=== PATIENT | male | born 1990 | race Two or more races ===

== ENCOUNTER 2024-12-06 14:12 | Inpatient (IN) | payer MEDICAID, SELFPAY ==
[2024-12-06] VITALS (9 sets, daily range): BP systolic 135–165; BP diastolic 93–110; PULSE 81–107; RESP 18–97; TEMP 36.8–37; O2SAT 83–97; BMI 23.5; BMI 22.8
--- NOTE | 2024-12-06 14:38 | PC.NURSE ---
CALLED FROM [facility] FOR TRIAGE/RME AND NO ANSWER
--- NOTE | 2024-12-06 15:00 | XR_ITS ---
Examination: CT abdomen and pelvis without contrast. Coronal 3-D reconstructions. Sagittal 2-D reconstructions. Date and time of exam:December 06, 2024 1534 hours INDICATIONS: Upper abdominal pain diagnosis pancreatitis symptoms beginning 4 days ago CTDI: vol (mGy): 5.75 DLP: (mGycm): 341 Technique: Axial images of the abdomen have been obtained, 3 mm slice thickness Intravenous contrast material has not been administered. Low dose protocols were performed. One or more of the following dose reduction techniques were used; automated exposure control, adjustment of the mA and/or KV according to patient size, use of iterative reconstruction technique. Findings: Severe diffuse fatty infiltration throughout the liver, no focal liver or splenic lesions Mildly hyperdense gallbladder Edema surrounding the pancreas No renal or ureteral calculi, no hydronephrosis Aorta normal size No bowel obstruction Diffuse colonic diverticulosis Normal appendix Contracted urinary bladder No prostatomegaly IMPRESSION: Acute pancreatitis, no pseudocyst
--- NOTE | 2024-12-06 15:01 | PD.EDRME ---
Rapid Medical Screening Exam [facility] Arrival date/time: 12/06/24 14:12 34-year-old male with a history of pancreatitis presents to the emergency room with a chief complaint of abdominal pain, nausea, vomiting x 4 days. Patient states over the weekend he began drinking alcohol and since then as per symptoms have progressively gotten worse. I have greeted and performed a focused initial assessment of this patient. A comprehensive ED assessment and evaluation of the patient, analysis of all test results, and completion of the medical decision making process will be conducted by additional ED providers. Chief Complaint: Abdominal Pain Time Seen by Provider: 12/06/24 14:21 Vital signs: Vital Signs Temperature 98.5 F 12/06/24 14:49 Pulse Rate 107 H 12/06/24 14:49 Respiratory Rate 20 12/06/24 14:49 Blood Pressure 145/93 H 12/06/24 14:49 Pulse Oximetry (%) 96 12/06/24 14:49 Oxygen Delivery Method Room Air 12/06/24 14:49 Vital signs reviewed by provider: Yes
[2024-12-06] MEDS: HYDROcodone/APAP 5/325 TABLET 1 TAB PO (15:08)
[2024-12-06] MEDS: ONDANSETRON ODT 4 MG TABRAP PO (15:08)
[2024-12-06 15:38] LABS: Collection Type, Urine Clean Catch
[2024-12-06 15:40] LABS: Basophils # (Auto) 0.1 Thou/mm3 (0.0-0.2); Basophils % (Auto) 1 % (0-2.5); Eosinophils % (Auto) 0 % (0-10); Hematocrit 44.4 % (41.0-53.0); Hemoglobin 16.2 g/dL (13.5-16.0); Immature Granulocytes % (Auto) 0 % (0-0); Immature Granulocytes Auto 0.04 Thou/mm3 (0.00-0.00); Lymphocytes # (Auto) 1.4 Thou/mm3 (1.0-4.8); Lymphocytes % (Auto) 13 % (10-50); Mean Corpuscular HGB Conc 36.5 g/dl (31.0-37.0); Mean Corpuscular Volume 90 fL (80-100); Monocytes # (Auto) 0.5 Thou/mm3 (0.0-0.8); Monocytes % (Auto) 5 % (0-12); Neutrophils # (Auto) 8.6 Thou/mm3 (1.8-7.7); Neutrophils % (Auto) 81 % (37-80); Nucleated Red Blood Cell % 0 /100 WBC (0); Platelet Count 184 Thou/mm3 (140-440); RDW Standard Deviation 41.4 fL (35.1-43.9); Red Blood Count 4.91 Miln/mm3 (4.50-5.90); White Blood Count 10.5 Thou/mm3 (3.8-10.6)
[2024-12-06 15:45] LABS: Bilirubin,Urine Negative (Negative); Blood,Urine Trace (Negative); Clarity,Urine Clear (Clear/Hazy); Color,Urine Yellow (Lt Yel-Yel); Glucose, Urine Negative (Negative); Ketones,Urine 4+ (Negative); Leukocyte Esterase,Urine Negative (Negative); Nitrite,Urine Negative (Negative); PH,Urine 6.5 (5.0-7.0); Protein,Urine 3+ (Neg - Trace); RBC,Urine 2 /hpf (0-3); Specific Gravity,Urine 1.041 (1.001-1.035); Squamous Epithelial Cell,Urine 1 /hpf (0-5); Urobilinogen,Urine Negative mg/dL (0.0-1.0); WBC,Urine 2 /hpf (0-5)
[2024-12-06 16:00] LABS: Alanine Aminotransferase 75 U/L (10-49); Albumin, Serum 5.2 gm/dL (3.5-5.0); Albumin/Globulin Ratio 1.5 (1.2-2.2); Alkaline Phosphatase 101 U/L (46-116); Anion Gap 20 (7-16); BUN/Creatinine Ratio 10 Ratio (12-20); Bilirubin,Total 1.3 mg/dL (0.3-1.2); Blood Urea Nitrogen 9 mg/dL (9-23); Carbon Dioxide 22.5 mMol/L (20.0-31.0); Chloride 95 mMol/L (98-107); Creatinine (Component) 0.9 mg/dL (0.6-1.3); Estimated Creatinine Clearance 106.1 mL/min (>60); Globulin 3.5 gm/dL (2.3-3.5); Glucose 114 mg/dL (74-106); Lipase 439 U/L (12-53); Osmolality,Calculated 273 (275-295); Potassium 4.1 mMol/L (3.4-5.1); Sodium 137 mMol/L (136-145); Total Protein 8.7 gm/dL (5.7-8.2); eGFR > 60 See Note
--- NOTE | 2024-12-06 19:33 | PC.NURSE ---
pt just placed in rm . co severe abd pain.
[2024-12-06] MEDS: MORPHINE SULF INJ 10 MG/ML VIAL 5 MG IVP (19:44)
[2024-12-06] MEDS: SODIUM CHLORIDE 0.9% 1000 ML 1,000 ML 999 ML IV (19:45)
[2024-12-06] MEDS: ONDANSETRON INJ 2 MG/ML INJ 2 ML 4 MG IVP (19:48)
--- NOTE | 2024-12-06 20:20 | PD.EDABDPN ---
ED Abdominal Pain RME/HPI General Chief Complaint: Abdominal Pain Stated complaint: I HAVE PANCREATITIS x 4 DAYS Time seen by provider: 12/06/24 14:21 Arrival date/time: 12/06/24 14:12 RME / HPI RME / HPI narrative: 12/06/24 14:12 34-year-old male with a history of pancreatitis presents to the emergency room with a chief complaint of abdominal pain, nausea, vomiting x 4 days. Patient states over the weekend he began drinking alcohol and since then as per symptoms have progressively gotten worse. I have greeted and performed a focused initial assessment of this patient. A comprehensive ED assessment and evaluation of the patient, analysis of all test results, and completion of the medical decision making process will be conducted by additional ED providers. DR KAVITHA GRACE ED EVALUATION: 34 yo male patient with a h/o pancreatitis c/o vomiting, diarrhea, epigastric abdominal pain, sweats radiating to the back x 3 days. States he went to a wedding over the weekend and drank a lot of alcohol. Related Data Allergies Allergy/AdvReac Type Severity Reaction Status Date / Time No Known Allergies Allergy Verified 12/06/24 14:14 Review of Systems Review of Systems Systems Reviewed: All systems reviewed, normal except as documented ED Exam Narrative Physical exam: GENERAL APPEARANCE: alert and oriented x 4, well-developed, well-nourished, no acute distress HEENT: Normocephalic, atraumatic; pupils equal, round, reactive to light; EOMI; mucous membranes pink, moist; oropharynx clear NECK: Supple LUNGS: CTABL; no wheezes, no rales, no rhonchi HEART: Regular rate, regular rhythm; normal S1, S2; no murmurs ABDOMEN: Mildly distended; normal BS; soft, epigastric tenderness, no guarding, no rebound; no masses, no organomegaly, no hernia BACK: no CVA tenderness EXTREMITIES: atraumatic; no edema NEUROLOGIC: awake; alert and oriented x4; cranial nerves II-XII grossly intact; no focal sensory or motor deficits PSYCHIATRIC: appropriate mood and affect SKIN: warm, dry, normal color; no rashes Course Quality Measures none Orders Category Date Time Status CT abdomen pelvis wo con Stat Exams 12/06/24 15:00 Completed CBC Stat Lab 12/06/24 15:21 Completed CMP [Comprehensive Metabolic Panel] Stat Lab 12/06/24 15:21 Completed Lipase Stat Lab 12/06/24 15:21 Completed UA [Urinalysis] Stat Lab 12/06/24 15:31 Completed Urine Culture Stat Lab 12/06/24 15:31 Received HYDROcodone*/APAP 5/325 [Robeline 5/325] Med 12/06/24 15:00 Discontinued 1 tab PO X1 ONE Morphine Inj Med 12/06/24 19:30 Discontinued 5 mg IVP X1 ONE Ondansetron Inj [Zofran Inj] Med 12/06/24 19:30 Discontinued 4 mg IVP X1 ONE Ondansetron Odt [Zofran Odt] Med 12/06/24 15:00 Discontinued 4 mg PO X1 ONE Sodium Chloride 0.9% 1000 ml [Ns] 1,000 ml Med 12/06/24 19:30 Active IV 999 mls/hr Vital Signs Vital signs: Vital Signs Temperature 98.5 F 12/06/24 14:49 Pulse Rate 107 H 12/06/24 14:49 Respiratory Rate 20 12/06/24 14:49 Blood Pressure 145/93 H 12/06/24 14:49 Pulse Oximetry (%) 96 12/06/24 14:49 Oxygen Delivery Method Room Air 12/06/24 14:49 Abdominal Pain MDM Patient data External records reviewed:: [facility] previous records (No previous records) Clinical information provided by:: patient Social determinants that could affect healthcare access:: alcohol use Patient has the following chronic illnesses:: None How is presenting disease/condition affected by chronic disease/condition?: no chronic disease Evaluation data The following diagnostics were reviewed and interpreted by me:: lab results and radiology exam(s) Lab and/or radiology exams considered but not ordered:: None Interpretation Summary: Lipase 439 Medications / Prescriptions Medications or Prescriptions considered but not ordered:: None Medication administrations:: Medication Administration History Sodium Chloride (Ns) 1,000 mls @ 999 mls/hr IV .Q1H1M ONE Stop: 12/06/24 20:30 Discontinued Medications Hydrocodone Bitart/Acetaminophen (Hydrocodone/Apap 5/325 Tablet) 1 tab PO X1 ONE Stop: 12/06/24 15:01 Last Admin: 12/06/24 15:08 Dose: 1 tab Documented By: Morphine Sulfate (Morphine Sulf Inj 10 Mg/Ml Vial) 5 mg IVP X1 ONE Stop: 12/06/24 19:31 Last Admin: 12/06/24 19:44 Dose: 5 mg Documented By: JUDIE Ondansetron HCl (Ondansetron Odt 4 Mg Tabrap) 4 mg PO X1 ONE; Protocol Stop: 12/06/24 15:01 Last Admin: 12/06/24 15:08 Dose: 4 mg Documented By: ASHISH Ondansetron HCl (Ondansetron Inj 2 Mg/Ml Inj 2 Ml) 4 mg IVP X1 ONE Stop: 12/06/24 19:31 Last Admin: 12/06/24 19:48 Dose: 4 mg Documented By: JUDIE As above Consultations Consultation(s) initiated? (list below): No Diagnosis Differential diagnosis abdominal pain: abdominal pain, acute appendicitis, calculus of kidney, constipation, diverticulitis, gastroenteritis, pancreatitis and small bowel obstruction Most likely diagnosis given after review of the tests above:: Acute pancreatitis Admission Indicated Admission indicated?: indicated Admission Request Was there a request for admission?: Yes Admission Attestation Admission request attestation: Discussed case with [] from Hospitalist service regarding admission. Discussed patients ED course, exam findings, labs, and radiology results. The Hospitalist [agrees,declines] to accept the patient for admission. Disposition Plan Disposition Plan: Admit Discharge Plan Plan Patient Disposition: Admit Acute Care w/in Hospital Prescriptions/Referrals Referrals: No Primary/Family,Physician [Primary Care Provider] - In 1 week Problem List Clinical Impression: Acute pancreatitis, Alcohol abuse Patient/Caregiver Discharge Instructions Print Language: Afghan Stand Alone Forms: Courtney Award Info., Patient Portal Info Letter
--- NOTE | 2024-12-06 20:38 | ESHP_ITS ---
Documentation for date of: 12/06/24 HPI History of Present Illness Chief complaint: N/V/Diarrhea/ Abd pain History of present illness: 34-year-old male with past medical history of previous acute pancreatitis episode last year was admitted to the hospital 12/06/2024 with come to the ED with complaints of abdominal pain, nausea, vomiting, and diarrhea like 3 days ago. Patient stated that he drinks around 2 or 3 cocktails every other day and that this weekend he was at a wedding therefore he drank straight from Thursday till Thursday and drank beer as well as cocktails. He stated that his last drink was yesterday evening. He mentioned that since he had his episode of pancreatitis last year he has been trying to cut down on his alcohol drinking. His symptoms started on Thursday with some nausea and vomiting, but he stated that today they became more intense and his abdominal pain was excruciating therefore he came to the ED. He did not have any other complaints other than these mention. ED course: Initially came in hypertensive, tachycardic, and afebrile. Initial labs were relevant for hyperbilirubinemia, elevated ALT, elevated lipase, and UA was positive for ketones. Initial imaging included abdomen/pelvis CT which showed acute pancreatitis with no cirrhosis. PMH as above Surgical Hx: Neck surgery when he was a kid Social Hx: Denies any smoking, illicit drugs, admits alcohol use Medications: None per patient Review of Systems Review of Systems Narrative Review of Systems: Constitutional: Denies sweats, Denies weight loss/gain, Denies fever, Admits chills. HEENT: Denies hearing loss, Denies ear pain, Denies postnasal drip, Denies double vision, Denies blurry vision. Respiratory: Denies shortness of breath, Denies cough, Denies wheezing. Cardiovascular: Denies chest pain, Admits palpitations, Denies sudden loss of consciousness. GI: Denies blood in stool, Admits diarrhea, Denies constipation, admits abdominal pain, Denies difficulty swallowing, admits nausea and vomit. : Denies urinary incontinence, Denies pain while urinating, Denies increased urinary frequency. MSK: Denies joint pain, Denies joint swelling, Denies numbness. Skin: Denies rash, Denies itching, Denies easy bruising. Neuro: Denies headaches, Denies dizziness, Denies seizures. Past Medical History Past Medical History Comments PMH COMMENT: PMH prior episode of pancreatitis Surgical Hx: Neck surgery when he was a kid Social Hx: Denies any smoking, illicit drugs, admits alcohol use Medications: None per patient Exam Vital Signs Temp Pulse Resp BP Pulse Ox O2 Del Method 98.5 F 81 19 165/110 H 96 Room Air 12/06/24 19:32 12/06/24 19:32 12/06/24 19:32 12/06/24 19:32 12/06/24 19:32 12/06/24 19:32 Narrative Exam General: A/O x3, no acute distress Eyes: PERRL, EOMI. Anicteric, vision grossly intact. Ears: No ear pain, no ear discharge, Hearing grossly intact. Nose: No nasal discharge. Mouth/Throat: Moist mucous membranes, no redness, no lesions. Neck: Neck supple, non-tender, no cervical lymphadenopathy. Lungs: Clear ERICA to auscultation and percussion, No accessory muscle use. Cardio: Normal S1/S2,tachycardic, regular rhythm, no murmurs, no JVD Abdomen: Soft, non-tender, no palpable masses, peristalsis present, no guarding or rebound. Extremities: Symmetrical, no significant deformities, no peripheral edema , non-tender, peripheral pulses presents. tremor with hand extension Skin: No rashes, no lesions, warm to touch. Neuro: No focal neurological deficits. motor and sensory intact Psych: mildly anxious appearing Results: Labs 12/06/24 15:21 12/06/24 15:21 Labs: Short CBC 12/06/24 Range/Units 15:21 WBC 10.5 (3.8-10.6) Thou/mm3 Hgb 16.2 H (13.5-16.0) g/dL Hct 44.4 (41.0-53.0) % Plt Count 184 (140-440) Thou/mm3 BMP 12/06/24 15:21 Sodium 137 Potassium 4.1 Chloride 95 L Carbon Dioxide 22.5 BUN 9 Creatinine 0.9 Glucose 114 H Calcium 10.0 Liver Function 12/06/24 Range/Units 15:21 Total Bilirubin 1.3 H (0.3-1.2) mg/dL ALT 75 H (10-49) U/L Alkaline Phosphatase 101 (46-116) U/L Albumin 5.2 H (3.5-5.0) gm/dL Urine 12/06/24 Range/Units 15:31 Urine Color Yellow (Lt Yel-Yel) Urine Clarity Clear (Clear/Hazy) Urine pH 6.5 (5.0-7.0) Ur Specific [place] 1.041 H (1.001-1.035) Urine Protein 3+ A (Neg - Trace) Urine Glucose (UA) Negative (Negative) Quality Measures Quality Measures none Medications Home Medications and Allergies Allergies Allergy/AdvReac Type Severity Reaction Status Date / Time No Known Allergies Allergy Verified 12/06/24 14:14 Visit Medications Discontinued Medications Hydrocodone Bitart/Acetaminophen (Hydrocodone/Apap 5/325 Tablet) 1 tab PO X1 ONE Stop: 12/06/24 15:01 Last Admin: 12/06/24 15:08 Dose: 1 tab Sodium Chloride (Ns) 1,000 mls @ 999 mls/hr IV .Q1H1M ONE Stop: 12/06/24 20:30 Last Admin: 12/06/24 19:45 Dose: 999 mls/hr Morphine Sulfate (Morphine Sulf Inj 10 Mg/Ml Vial) 5 mg IVP X1 ONE Stop: 12/06/24 19:31 Last Admin: 12/06/24 19:44 Dose: 5 mg Ondansetron HCl (Ondansetron Odt 4 Mg Tabrap) 4 mg PO X1 ONE; Protocol Stop: 12/06/24 15:01 Last Admin: 12/06/24 15:08 Dose: 4 mg Ondansetron HCl (Ondansetron Inj 2 Mg/Ml Inj 2 Ml) 4 mg IVP X1 ONE Stop: 12/06/24 19:31 Last Admin: 12/06/24 19:48 Dose: 4 mg Assessment & Plan Plan 34-year-old male with past medical history of previous acute pancreatitis episode last year was admitted to the hospital 12/06/2024 for acute pancreatitis likely in the setting of alcohol use and alcohol withdrawal. #Acute pancreatitis #Alcohol withdrawal Patient drinks 2-3 cocktails every other day and had a binge drinking episode this weekend that started on Thursday and that yesterday night. Last drink was yesterday evening On assessment CIWA score was 9 Patient's pain seems well-controlled at this time given that he got morphine. Abdomen/pelvis CT that showed acute pancreatitis without any pseudocyst Lipase was elevated at 439 Plan: [facility] protocol ordered Aggressive IV fluids Pain management with [place] and morphine. N.p.o. unless patient requests diet lipid panel in am to monitor triglycerides Will continue monitor Disposition: Patient admitted to med surg for pancreatitis and alcohol withdrawal Diet: NPO GI prophylaxis: not indicated DVT prophylaxis: SCDs Code: Full Case disclosed with Attending Dr. Whitney Desai PGY1 Disclaimer: Even though this this note was dictated by speech recognition and even though it was carefully revised there may still be minor errors in manager transportation due to voice recognition software. Attending Provider Attestation/Addendum I reviewed labs, imaging, EKG, home medications and prior available records. Face to face evaluation was performed by me. I have personally examined the patient and discussed assessment and plan with the IM team. I reviewed the resident note and agree with the plan with exceptions as below. Acute pancreatitis Alcohol abuse Alcohol withdrawal Elevated AST Continue IV fluids Management of nausea/vomiting/pain as needed Monitor LFTs Counseled the patient regarding the importance of avoiding alcohol use Started [facility] protocol for possible withdrawal Started thiamine and folic acid
[2024-12-06] MEDS: THIAMINE 100 MG TABLET PO (20:53)
[2024-12-06] MEDS: FOLIC ACID 1 MG TABLET PO (20:53)
[2024-12-06] MEDS: SODIUM CHLORIDE 0.9% 1000 ML 1,000 ML 150 ML IV (20:54)
--- NOTE | 2024-12-06 23:21 | PC.NURSE ---
leonila given to Giovani VACA. pt taken to rm by ZOË.
[2024-12-06] MEDS: MORPHINE SULF INJ 10 MG/ML VIAL 2 MG IVP (23:51)
[2024-12-07] VITALS (8 sets, daily range): BP systolic 142–162; BP diastolic 91–102; PULSE 80–94; RESP 17–99; TEMP 36.2–37.1; O2SAT 96–99
[2024-12-07] MEDS: ONDANSETRON INJ 2 MG/ML INJ 2 ML 4 MG IVP (05:01)
[2024-12-07] MEDS: SODIUM CHLORIDE 0.9% 1000 ML 1,000 ML 150 ML IV (05:01)
[2024-12-07] MEDS: MORPHINE SULF INJ 10 MG/ML VIAL 2 MG IVP ×3 (05:12→21:33)
[2024-12-07 06:06] LABS: Basophils % (Auto) 0 % (0-2.5); Eosinophils % (Auto) 0 % (0-10); Hematocrit 42.4 % (41.0-53.0); Hemoglobin 14.4 g/dL (13.5-16.0); Immature Granulocytes % (Auto) 0 % (0-0); Immature Granulocytes Auto 0.02 Thou/mm3 (0.00-0.00); Lymphocytes # (Auto) 1.4 Thou/mm3 (1.0-4.8); Lymphocytes % (Auto) 18 % (10-50); Mean Corpuscular Hemoglobin 32.9 pg (25.0-35.0); Mean Corpuscular Volume 97 fL (80-100); Monocytes # (Auto) 0.6 Thou/mm3 (0.0-0.8); Monocytes % (Auto) 8 % (0-12); Neutrophils # (Auto) 5.7 Thou/mm3 (1.8-7.7); Neutrophils % (Auto) 73 % (37-80); Nucleated Red Blood Cell % 0 /100 WBC (0); Platelet Count 130 Thou/mm3 (140-440); RDW Standard Deviation 45.1 fL (35.1-43.9); Red Blood Count 4.38 Miln/mm3 (4.50-5.90); White Blood Count 7.8 Thou/mm3 (3.8-10.6)
[2024-12-07] MEDS: HYDROcodone/APAP 5/325 TABLET 1 TAB PO (06:39)
[2024-12-07 06:50] LABS: Alanine Aminotransferase 53 U/L (10-49); Albumin, Serum 4.5 gm/dL (3.5-5.0); Albumin/Globulin Ratio 1.6 (1.2-2.2); Alkaline Phosphatase 81 U/L (46-116); Anion Gap 13 (7-16); BUN/Creatinine Ratio 13 Ratio (12-20); Bilirubin,Total 1.3 mg/dL (0.3-1.2); Blood Urea Nitrogen 10 mg/dL (9-23); Calcium 9.2 mg/dL (8.3-10.6); Calcium (Corrected) 9.2 mg/dL (8.5-10.1); Cardiac Risk Estimate 2.2 RATIO (4.0-6.7); Chloride 99 mMol/L (98-107); Cholesterol 155 mg/dL (132-200); Creatinine (Component) 0.8 mg/dL (0.6-1.3); Estimated Creatinine Clearance 119.2 mL/min (>60); Globulin 2.9 gm/dL (2.3-3.5); Glucose 109 mg/dL (74-106); HDL Cholesterol 70 mg/dL (40-60); LDL Cholesterol,Calculated 64 mg/dL (0-130); Magnesium 1.6 mg/dL (1.6-2.6); Osmolality,Calculated 277 (275-295); Potassium 3.7 mMol/L (3.4-5.1); Sodium 139 mMol/L (136-145); Total Protein 7.4 gm/dL (5.7-8.2); Triglycerides 107 mg/dL (30-150); eGFR > 60 See Note
[2024-12-07] MEDS: THIAMINE 100 MG TABLET PO ×2 (08:10→20:26)
[2024-12-07] MEDS: FOLIC ACID 1 MG TABLET PO ×2 (08:10→20:26)
[2024-12-07] MEDS: LORazepam 0.5 MG TABLET PO (08:20)
--- NOTE | 2024-12-07 09:05 | CHAP ---
Visited with patient about what he was going through and gave encouragement and comfort. We then had prayer together.
--- NOTE | 2024-12-07 09:28 | PC.SS ---
34YO male, reason for visit: Acute pancreatitis SS met with patient at bedside. Patient confirmed demographic information. Patient provided physical address [address] [place] [address]. Patient requested only PO BOX be listed on facesheet. Patient stated his primary medical surrogate decisonmaker is his mother, Elza Saab [phone]. Patient stated he is independent with both ADLs and ambulation. Pharmacy: No preferred pharmacy. States any [facility] [place] is [facility]. PCP: None. Brought in yesterday by his mother to [facility] ED. Reports he receives medical care at [facility] as needed. Next of kin: Parent Elza Saab [phone]. Dsicharge plan: Parent?s home, parent to transport.
--- NOTE | 2024-12-07 16:39 | ESPR_ITS ---
Documentation for date of: 12/07/24 Subjective Subjective Interval history: Patient examined at bedside, continues to have abdominal pain radiating to back. He says it has not improved since admission with the morphine. Had a few episodes of hematemesis this morning but no diarrhea. CBC CMP unremarkable. Vitals are stable Tag 100, AST mildly elevated 53, bilirubin 1.3. Start patient on clear liquid diet and advance as tolerated for pancreatitis. Continue fluids, morphine and monitor JACK's. CIWA 2 due to n/v. Exam Vital Signs Temp Pulse Resp BP Pulse Ox O2 Del Method 97.9 F 85 20 162/100 H 96 Room Air 12/07/24 11:50 12/07/24 16:09 12/07/24 16:09 12/07/24 11:50 12/07/24 11:50 12/07/24 11:50 Narrative Exam General: young male, No acute distress, cooperative HEENT: NCAT, No JVD noted. Mucosa dry. Pupils are equal and reactive to light bilaterally Cardiovascular: Normal S1 and S2. Regular rate and rhythm. Respiratory: Lungs are clear to auscultation bilaterally. No wheezing or crackles heard. Abdomen: Soft, epigastric tender, not distended, normal bowel sounds. Skin: Warm to touch, dry, no rashes noted Musculoskeletal: No gross injuries. Able to move all 4 extremities. No pitting edema Neuro: Alert and oriented x3. No focal neuro deficits. Psych: Normal affect and mood Objective Labs 12/08/24 05:31 12/08/24 05:31 Labs: Laboratory Results - last 24 hr 12/07/24 05:11 WBC 7.8 RBC 4.38 L Hgb 14.4 Hct 42.4 MCV 97 MCH 32.9 MCHC 34.0 RDW Std Deviation 45.1 H Plt Count 130 L D Neut % (Auto) 73 Lymph % (Auto) 18 [place] % (Auto) 8 Eos % (Auto) 0 Baso % (Auto) 0 Neut # (Auto) 5.7 Lymph # (Auto) 1.4 [place] # (Auto) 0.6 Eos # (Auto) 0.0 Baso # (Auto) 0.0 Immature Gran # (Auto) 0.02 H Absolute Nucleated RBC 0.00 Immature Gran % 0 Nucleated RBC % 0 Sodium 139 Potassium 3.7 Chloride 99 Carbon Dioxide 27.0 Anion Gap 13 BUN 10 Creatinine 0.8 Estim Creat Clear Calc 119.2 eGFR > 60 BUN/Creatinine Ratio 13 Glucose 109 H Calculated Osmolality 277 Calcium 9.2 Corrected Calcium 9.2 Phosphorus 3.0 Magnesium 1.6 Total Bilirubin 1.3 H ALT 53 H Alkaline Phosphatase 81 D Total Protein 7.4 Albumin 4.5 D Globulin 2.9 Albumin/Globulin Ratio 1.6 Triglycerides 107 Cholesterol 155 LDL Cholesterol, Calc 64 HDL Cholesterol 70 H Cholesterol/HDL Ratio 2.2 L Quality Measures Quality Measures none Assessment & Plan Assessment Current Active Medications: Generic Name Dose Route Start Last Admin Trade Name Freq PRN Reason Stop Dose Admin Hydrocodone Bitart/Acetaminophen 1 tab 12/06/24 20:30 12/07/24 06:39 Hydrocodone/Apap 5/325 Tablet PO 12/11/24 20:29 1 tab Q4HR PRN Administration PAIN SCALE 4-6 (Moderate Folic Acid 1 mg 12/06/24 21:00 12/07/24 08:10 Folic Acid 1 Mg Tablet PO 12/11/24 20:59 1 mg BID GEORGETTE Administration Sodium Chloride 1,000 mls @ 150 mls/hr 12/06/24 20:30 12/07/24 05:01 Ns IV 150 mls/hr .Q6H40M GEORGETTE Administration Lorazepam 0.5 mg 12/06/24 20:36 12/07/24 08:20 Lorazepam 0.5 Mg Tablet PO 12/11/24 20:35 0.5 mg Q4HR PRN Administration CIWA Score 2-6 Lorazepam 1 mg 12/06/24 20:36 Lorazepam 0.5 Mg Tablet PO 12/11/24 20:35 Q4HR PRN CIWA SCORE 7-11 Lorazepam 2 mg 12/06/24 20:36 Lorazepam 0.5 Mg Tablet PO 12/11/24 20:35 Q4HR PRN CIWA SCORE 12-15 Morphine Sulfate 2 mg 12/06/24 20:30 12/07/24 08:20 Morphine Sulf Inj 10 Mg/Ml Vial IVP 12/11/24 20:29 2 mg Q2H PRN Administration PAIN SCALE 7-10 (Severe Ondansetron HCl 4 mg 12/06/24 20:30 12/07/24 05:01 Ondansetron Inj 2 Mg/Ml Inj 2 Ml IVP 01/05/25 20:29 4 mg Q6H PRN Administration NAUSEA OR VOMITING Protocol Thiamine HCl 100 mg 12/06/24 21:00 12/07/24 08:10 Thiamine 100 Mg Tablet PO 12/11/24 20:59 100 mg BID GEORGETTE Administration Plan 34-year-old male with past medical history of previous acute pancreatitis episode last year was admitted to the hospital 12/06/2024 for acute pancreatitis likely in the setting of alcohol use and alcohol withdrawal. #Acute pancreatitis #Alcohol withdrawal Patient drinks 2-3 cocktails every other day and had a binge drinking episode this weekend that started on Thursday due to . Last drink was evening before discharge. On admission CIWA score was 9 Abdomen/pelvis CT that showed acute pancreatitis without any pseudocyst Lipase was elevated at 439, TAG 100, Br 1.3 -CIWA protocol -IV NS 150cc/hr -Pain management with [place] and morphine. -start clear liquid diet and advance as tolerated -Will continue monitor Disposition: Patient admitted to med surg for pancreatitis and alcohol withdrawal Diet: Clear liquid GI prophylaxis: not indicated DVT prophylaxis: SCDs Code: Full The patient's management plan was discussed with my attending physician Dr. Salazar. Florence Zabala, PGY-1 Attending Provider Attestation/Addendum I have examined the patient, reviewed labs and imaging findings, discussed the case with the resident(s), and reviewed entered orders. I agree with the plan of care as outlined in this note, with these additional summaries/recommendations: Patient seen at bedside. He was admitted overnight for acute pancreatitis. He is still endorsing moderate to severe abdominal pain but responds well to as needed IV morphine. Acute pancreatitis most likely secondary to alcohol use. Continue aggressive IV fluids and as needed pain management. Will start clear liquid diet to see if patient can tolerate. Counseled on alcohol cessation. No indication for antibiotics at this time. Patient also placed on CIWA protocol and withdrawal symptoms continue to be mild at this time although patient is at risk for progression. Patient updated on the plan and in agreement. All questions answered to satisfaction. Please see residents note for additional details and management. Dr. Martin MD
[2024-12-08] VITALS (7 sets, daily range): BP systolic 147–175; BP diastolic 98–118; PULSE 82–120; RESP 16–97; TEMP 36.2–36.9; O2SAT 97–98
[2024-12-08 06:03] LABS: Basophils % (Auto) 0 % (0-2.5); Eosinophils % (Auto) 0 % (0-10); Hematocrit 42.2 % (41.0-53.0); Hemoglobin 15.1 g/dL (13.5-16.0); Immature Granulocytes % (Auto) 0 % (0-0); Immature Granulocytes Auto 0.02 Thou/mm3 (0.00-0.00); Lymphocytes # (Auto) 1.4 Thou/mm3 (1.0-4.8); Lymphocytes % (Auto) 17 % (10-50); Mean Corpuscular HGB Conc 35.8 g/dl (31.0-37.0); Mean Corpuscular Hemoglobin 32.8 pg (25.0-35.0); Mean Corpuscular Volume 92 fL (80-100); Monocytes # (Auto) 0.6 Thou/mm3 (0.0-0.8); Monocytes % (Auto) 7 % (0-12); Neutrophils # (Auto) 6.2 Thou/mm3 (1.8-7.7); Neutrophils % (Auto) 75 % (37-80); Nucleated Red Blood Cell % 0 /100 WBC (0); Platelet Count 101 Thou/mm3 (140-440); RDW Standard Deviation 40.5 fL (35.1-43.9); Red Blood Count 4.61 Miln/mm3 (4.50-5.90); White Blood Count 8.3 Thou/mm3 (3.8-10.6)
[2024-12-08 06:30] LABS: Alanine Aminotransferase 49 U/L (10-49); Albumin, Serum 4.6 gm/dL (3.5-5.0); Albumin/Globulin Ratio 1.5 (1.2-2.2); Alkaline Phosphatase 87 U/L (46-116); Anion Gap 12 (7-16); BUN/Creatinine Ratio 10 Ratio (12-20); Bilirubin,Total 1.4 mg/dL (0.3-1.2); Blood Urea Nitrogen 8 mg/dL (9-23); Calcium 9.9 mg/dL (8.3-10.6); Calcium (Corrected) 9.9 mg/dL (8.5-10.1); Chloride 95 mMol/L (98-107); Creatinine (Component) 0.8 mg/dL (0.6-1.3); Estimated Creatinine Clearance 119.2 mL/min (>60); Globulin 3.1 gm/dL (2.3-3.5); Glucose 96 mg/dL (74-106); Magnesium 1.9 mg/dL (1.6-2.6); Osmolality,Calculated 266 (275-295); Phosphorous 3.1 mg/dL (2.4-5.1); Potassium 4.2 mMol/L (3.4-5.1); Sodium 134 mMol/L (136-145); Total Protein 7.7 gm/dL (5.7-8.2); eGFR > 60 See Note
[2024-12-08] MEDS: FOLIC ACID 1 MG TABLET PO (08:28)
[2024-12-08] MEDS: THIAMINE 100 MG TABLET PO (08:28)
[2024-12-08] MEDS: RINGERS LACTATED 1000 ML 1,000 ML 150 ML IV (09:02)
[2024-12-08] MEDS: amLODIPine BESYLATE 2.5 MG TABLET PO (10:28)
[2024-12-08] MEDS: RINGERS LACTATED 1000 ML 1,000 ML 100 ML IV (10:29)
--- NOTE | 2024-12-08 13:05 | PC.SS ---
SS follow up note; Patient is still having pain, needs to tolerate diet before discharging back home.
--- NOTE | 2024-12-08 14:08 | PD.RESPRO ---
Documentation for date of: 12/08/24 Subjective Subjective Interval history: Patient was seen and examined at bedside. No acute overnight events. Patient started on clear liquid diet, tolerated well, advance diet as tolerated, today afternoon patient had regular diet, tolerated well, denies any nausea, vomiting, CBC CMP unremarkable. However patient is still complaining of withdrawal symptoms, mild tremor, tachycardia, patient will be kept for 1 more day per [facility] protocol, treat alcohol withdrawal symptoms as needed, also patient blood pressure has been running high for the last couple of days, there might be a component of withdrawal symptoms to, however amlodipine 2.5 was started, we will add GONZALEZ as needed, to control BP, for now plan is to monitor for 1 more day, stabilize blood pressure, advance diet as tolerates, wean off pain medication, and anticipate discharge in next 24 hours. Exam Vital Signs Temp Pulse Resp BP Pulse Ox O2 Del Method 97.5 F 96 16 147/102 H 97 Room Air 12/08/24 08:00 12/08/24 10:28 12/08/24 08:00 12/08/24 10:28 12/08/24 08:00 12/08/24 08:00 Narrative Exam GENERAL: no acute distress, AAO x3, well nourished. HEENT: Head AT/ NC. Mucous membranes moist. PERRL. NECK: Supple, no lymphadenopathy, no carotid bruits. CARDIOVASCULAR: RRR. Normal S1/S2, No m/r/g. No pitting edema of bilateral LEs. RESPIRATORY: CTAB. No wheezing, rhonchi, crackles. GASTROINTESTINAL: Abdomen soft, non tender no palpable masses. Bowel sounds present in all 4 quadrants. MUSCULOSKELETAL:? No cyanosis or edema, no visible joint swelling. NEUROLOGICAL: CN II-XII grossly intact. No focal deficits. Sensation intact, symmetric.slight tremor on BL upper extremities. PSYCHIATRIC: Awake and alert, not agitated, normal mood and affect. INTEGUMENTARY: No obvious rashes, no jaundice, normal turgor. Objective Labs 12/08/24 05:31 12/08/24 05:31 Labs: Laboratory Results - last 24 hr 12/08/24 05:31 WBC 8.3 RBC 4.61 Hgb 15.1 Hct 42.2 MCV 92 MCH 32.8 MCHC 35.8 RDW Std Deviation 40.5 Plt Count 101 L D Neut % (Auto) 75 Lymph % (Auto) 17 [place] % (Auto) 7 Eos % (Auto) 0 Baso % (Auto) 0 Neut # (Auto) 6.2 Lymph # (Auto) 1.4 [place] # (Auto) 0.6 Eos # (Auto) 0.0 Baso # (Auto) 0.0 Immature Gran # (Auto) 0.02 H Absolute Nucleated RBC 0.00 Immature Gran % 0 Nucleated RBC % 0 Sodium 134 L Potassium 4.2 D Chloride 95 L Carbon Dioxide 27.0 Anion Gap 12 BUN 8 L Creatinine 0.8 Estim Creat Clear Calc 119.2 eGFR > 60 BUN/Creatinine Ratio 10 L Glucose 96 Calculated Osmolality 266 L Calcium 9.9 Corrected Calcium 9.9 Phosphorus 3.1 Magnesium 1.9 Total Bilirubin 1.4 H ALT 49 Alkaline Phosphatase 87 Total Protein 7.7 Albumin 4.6 Globulin 3.1 Albumin/Globulin Ratio 1.5 Quality Measures Quality Measures none Assessment & Plan Assessment Current Active Medications: Generic Name Dose Route Start Last Admin Trade Name Freq PRN Reason Stop Dose Admin Hydrocodone Bitart/Acetaminophen 1 tab 12/06/24 20:30 12/07/24 06:39 Hydrocodone/Apap 5/325 Tablet PO 12/11/24 20:29 1 tab Q4HR PRN Administration PAIN SCALE 4-6 (Moderate Amlodipine Besylate 2.5 mg 12/08/24 10:30 12/08/24 10:28 Amlodipine Besylate 2.5 Mg Tablet PO 01/07/25 10:29 2.5 mg QDAY GEORGETTE Administration Folic Acid 1 mg 12/06/24 21:00 12/08/24 08:28 Folic Acid 1 Mg Tablet PO 12/11/24 20:59 1 mg BID GEORGETTE Administration Lactated Ringer's 1,000 mls @ 100 mls/hr 12/08/24 10:17 12/08/24 10:29 Lactated Ringers IV 01/07/25 10:16 100 mls/hr .Q10H GEORGETTE Administration Lorazepam 0.5 mg 12/06/24 20:36 12/07/24 08:20 Lorazepam 0.5 Mg Tablet PO 12/11/24 20:35 0.5 mg Q4HR PRN Administration CIWA Score 2-6 Lorazepam 1 mg 12/06/24 20:36 Lorazepam 0.5 Mg Tablet PO 12/11/24 20:35 Q4HR PRN CIWA SCORE 7-11 Lorazepam 2 mg 12/06/24 20:36 Lorazepam 0.5 Mg Tablet PO 12/11/24 20:35 Q4HR PRN CIWA SCORE 12-15 Morphine Sulfate 2 mg 12/06/24 20:30 12/07/24 21:33 Morphine Sulf Inj 10 Mg/Ml Vial IVP 12/11/24 20:29 2 mg Q2H PRN Administration PAIN SCALE 7-10 (Severe Ondansetron HCl 4 mg 12/06/24 20:30 12/07/24 05:01 Ondansetron Inj 2 Mg/Ml Inj 2 Ml IVP 01/05/25 20:29 4 mg Q6H PRN Administration NAUSEA OR VOMITING Protocol Thiamine HCl 100 mg 12/06/24 21:00 12/08/24 08:28 Thiamine 100 Mg Tablet PO 12/11/24 20:59 100 mg BID GEORGETTE Administration Plan 34-year-old male with past medical history of previous acute pancreatitis episode last year was admitted to the hospital 12/06/2024 for acute pancreatitis likely in the setting of alcohol use and alcohol withdrawal. #Acute pancreatitis #Alcohol withdrawal Patient drinks 2-3 cocktails every other day and had a binge drinking episode this weekend that started on Thursday due to . Last drink was evening before discharge. On admission CIWA score was 9 Abdomen/pelvis CT that showed acute pancreatitis without any pseudocyst Lipase was elevated at 439, TAG 100, Br 1.3 -[facility] protocol -IVF will be DC starting diet -Pain management with [place] only, wean off from Morphine -start clear liquid diet and advance as tolerated -Will continue monitor #Hypertension per patient he has been having a high blood pressure at home to At hospital blood pressure usually runs 140s to 160s The might be component of alcohol withdrawal and anxiety - Treat underlying withdrawal symptoms per [facility] protocol - Amlodipine 2.5 - Hydralazine as needed for SBP above 170, DBP above 110. Disposition: Patient admitted to med surg for pancreatitis and alcohol withdrawal Diet: Clear liquid advance as tolerates GI prophylaxis: not indicated DVT prophylaxis: SCDs Code: Full Patient care was discussed with attending physician Dr. Martin Barnett MD PGY-2 I have carefully reviewed this document. Due to imperfections in the voice software, there could be grammatical errors including phonetic/typographic errors. This in no way compromises the medical care the patient is receiving
--- NOTE | 2024-12-08 15:12 | ESDS_ITS ---
Planned Discharge Date 12/08/24 DS: Providers Provider Date of admission: 12/06/24 20:30 Primary care physician: Physician No Primary/Family Admitting Provider: Ladarius Olson MD Attending Provider on Admission: Ez Salazar MD Attending Provider on DC: Evelyn Barnett MD Discharging Provider: Evelyn Barnett MD DS: Diagnosis Problem List Completed Was Problem List Reviewed/Reconciled?: Yes Hospital Course Hospital Course Hospital course: 34-year-old male with past medical history of alcohol use disorder was admitted for acute pancreatitis and alcohol withdrawal treatment and management. On presentation patient was complaining of severe abdominal pain, CT revealed acute pancreatitis, lipase was elevated. Patient received adequate IV hydration. Pain was managed as needed. Patient started on clear liquid diet, tolerated well. Per [facility] protocol patient received Ativan as needed and multivitamins, today upon our evaluation patient was hemodynamically stable, tolerated diet well, denies any nausea, vomiting, any other associated symptoms. During hospital stay noted to have a high blood pressure around 140s to 160s, low-dose of amlodipine 2.5 was started, and patient will be followed up outpatient with PCP in 1 to 2 weeks after discharge. Patient was extensively counseled regarding the harmful effect of alcohol use, including its impact on physical and mental health. All questions and concerns were addressed. Patient gave verbalized understanding. Patient today will be discharged home with multivitamins, take amlodipine 2.5 mg twice daily for blood pressure control, follow-up outpatient, return to ED anytime symptoms worsens. #acute pancreatitis #alcohol withdrawal Patient care was discussed with attending physician Dr. Martin Barnett MD PGY-2 I have carefully reviewed this document. Due to imperfections in the voice software, there could be grammatical errors including phonetic/typographic errors. This in no way compromises the medical care the patient is receiving Time Spent with Patient Time attestation: Total time spent providing and/or coordinating discharge services: Time spent: Greater than 30 minutes Exam Vital Signs Temp Pulse Resp BP Pulse Ox O2 Del Method 97.1 F 106 H 16 147/110 H 98 Room Air 12/08/24 12:00 12/08/24 14:00 12/08/24 12:00 12/08/24 14:00 12/08/24 12:00 12/08/24 12:00 Narrative Exam GENERAL: no acute distress, AAO x3, well nourished. HEENT: Head AT/ NC. Mucous membranes moist. PERRL. NECK: Supple, no lymphadenopathy, no carotid bruits. CARDIOVASCULAR: RRR. Normal S1/S2, No m/r/g. No pitting edema of bilateral LEs. RESPIRATORY: CTAB. No wheezing, rhonchi, crackles. GASTROINTESTINAL: Abdomen soft, non tender no palpable masses. Bowel sounds present in all 4 quadrants. MUSCULOSKELETAL:? No cyanosis or edema, no visible joint swelling. NEUROLOGICAL: CN II-XII grossly intact. No focal deficits. Sensation intact, symmetric. PSYCHIATRIC: Awake and alert, not agitated, normal mood and affect. INTEGUMENTARY: No obvious rashes, no jaundice, normal turgor. Discharge Plan Plan Patient Disposition: HOME (Self Care) Patient condition on transfer: Stable Prescriptions/Referrals Prescriptions/Med Rec: New amlodipine 2.5 mg Tablet 2.5 mg PO QDAY 14 Days Qty: 14 0RF folic acid 1 mg Tablet 1 mg PO BID 14 Days Qty: 28 0RF thiamine mononitrate (vit B1) 100 mg Tablet 100 mg PO BID 14 Days Qty: 28 0RF Referrals: No Primary/Family,Physician [Primary Care Provider] - Patient/Caregiver Discharge Instructions Discharge Activity: activity as tolerated Other Discharge Activity Instructions:: take folic acid and B1 vitamins as prescribe complete abstinence from alcohol we started amlodipine 2.5 mg daily to control blood pressure, please monitor at home, and follow up with PCP in 1 week after discharge increase oral hydration return to ED anytime symptom worsens Education Materials: Pancreatitis Acute Dc Print Language: [place] Stand Alone Forms: Courtney Award Info., Patient Portal Info Letter Discharge Order Discharge Orders: Discharge (Routine); Ordered 12/08/24 Ordered By: Reinier Bills [facility] Quality Discharge Quality Measures VTE prophylaxis Attestestation MD Attestation I have examined the patient, reviewed labs and imaging findings, discussed the case with the resident(s), and reviewed entered orders. I agree with the plan of care as outlined in this note. Time Spent: [address] Martin MD
--- NOTE | 2024-12-08 15:42 | PC.NURSE ---
1330 Dr. Grossman came to see patient to see how he tolerated his lunch. Also, aware of patient high blood pressure. 167/120. Patient is resltless and anxious. Patient refusing medication at this time.
== END 2024-12-08 15:48 | disposition home or self-care (01) | DRG 282 ==
LOC: SERX 20:28 → SERHOLD 21:02 → S3NX 23:17
PROVIDERS: Nurse Practitioner Family; Admitting Provider Student in an Organized Health Care Education/Training Program; Emergency Provider Emergency Medicine; Visit Provider Student in an Organized Health Care Education/Training Program
DX: K85.90 Acute pancreatitis without necrosis or infection, unspecified (principal); F10.139 Alcohol abuse with withdrawal, unspecified; R74.01 Elevation of levels of liver transaminase levels; K92.0 Hematemesis; E80.6 Other disorders of bilirubin metabolism; R03.0 Elevated blood-pressure reading, without diagnosis of hypertension
CPT/HCPCS: 36415; 74176; 80053; 80061; 81001; 83690; 83735; 84100; 85025; 87086; 96361; 96374; 96375; 96376; 99285; J2270; J2405; J7030; J7120; Q0162; A9270